=== PATIENT | male | born 1945 | race Two or more races ===

== ENCOUNTER 2019-08-15 23:57 | Emergency (ER) | payer OTHER ==
[~2019-08-15] VITALS: Ht 170.2 cm; Wt 63.5 kg
== END 2019-08-16 04:35 | disposition home or self-care (01) ==
LOC: ER 23:57
DX: S00.03XA Contusion of scalp, initial encounter (principal); F10.129 Alcohol abuse with intoxication, unspecified; W22.8XXA Striking against or struck by other objects, initial encounter; Y93.89 Activity, other specified; Y92.488 Other paved roadways as the place of occurrence of the external cause; Y99.8 Other external cause status

== ENCOUNTER 2019-08-18 12:06 | Emergency (ER) | payer OTHER ==
[~2019-08-18] VITALS: Ht 170.2 cm; Wt 62.6 kg
== END 2019-08-18 13:16 | disposition home or self-care (01) ==
LOC: ER 12:06
DX: S00.03XD Contusion of scalp, subsequent encounter (principal); W18.39XD Other fall on same level, subsequent encounter

== ENCOUNTER 2019-08-31 11:42 | Emergency (ER) | payer OTHER ==
[~2019-08-31] VITALS: Ht 170.2 cm; Wt 62.6 kg
== END 2019-08-31 15:30 | disposition home or self-care (01) ==
LOC: ER 11:42
DX: M54.2 Cervicalgia (principal); R05 Cough

== ENCOUNTER 2020-08-02 11:17 | Emergency (ER) | payer OTHER ==
[~2020-08-02] VITALS: Ht 170.2 cm; Wt 63.5 kg
== END 2020-08-02 14:28 | disposition home or self-care (01) ==
LOC: ER 11:17
DX: M54.2 Cervicalgia (principal); R51.9 Headache, unspecified; Z03.818 Encounter for observation for suspected exposure to other biological agents ruled out

== ENCOUNTER 2020-11-22 12:24 | Emergency (ER) | payer OTHER ==
[~2020-11-22] VITALS: Ht 152.4 cm; Wt 61.2 kg
[2020-11-22] MEDS ORDERED: BUTALB-ASPIRIN1 EACH PO (16:34)
[2020-11-22] MEDS ORDERED: TYLENOL325 MG (16:35)
== END 2020-11-22 17:08 | disposition home or self-care (01) ==
LOC: ER 12:24
DX: G44.201 Tension-type headache, unspecified, intractable (principal)

== ENCOUNTER 2021-02-23 11:35 | Emergency (ER) | payer OTHER ==
[~2021-02-23] VITALS: Ht 170.2 cm; Wt 65.8 kg
[~2021-02-23 11:35] MED LIST: BUTALB-ASPIRIN1 EACH PO; TYLENOL325 MG
[2021-02-23] MEDS ORDERED: FLONASE ALLERG9.9 ML NASAL (16:23)
[2021-02-23] MEDS ORDERED: ZITHROMAX500 MG PO (16:23)
[2021-02-23] MEDS ORDERED: ALLERGY RELIEF10 M3 PO (16:23)
[2021-02-23] MEDS ORDERED: MUCINEX DM ER1 EAC1 PO (16:23)
[2021-02-23] MEDS ORDERED: NIZORAL SHAMPO120 ML TOP (16:41)
[2021-02-23] MEDS ORDERED: CLOTRIMAZOLE-BE15 GM TOP (16:41)
== END 2021-02-23 16:43 ==
LOC: ER 11:35
DX: J06.9 Acute upper respiratory infection, unspecified (principal); B34.9 Viral infection, unspecified; Z03.818 Encounter for observation for suspected exposure to other biological agents ruled out

== ENCOUNTER 2021-04-04 14:00 | Emergency (ER) | payer OTHER ==
[~2021-04-04] VITALS: Ht 170.2 cm; Wt 63.5 kg
[~2021-04-04 14:00] MED LIST changes: +ALLERGY RELIEF10 M3 PO; +CLOTRIMAZOLE-BE15 GM TOP; +FLONASE ALLERG9.9 ML NASAL; +MUCINEX DM ER1 EAC1 PO; +NIZORAL SHAMPO120 ML TOP; +ZITHROMAX500 MG PO
[2021-04-04] MEDS ORDERED: FLUTICASONE PRO16 GM NASAL (15:24)
[2021-04-04] MEDS ORDERED: CLOTRIMAZOLE TOP (15:24)
[2021-04-04] MEDS ORDERED: CLOTRIMAZOLE-BE15 GM TOP (15:24)
[2021-04-04] MEDS ORDERED: HYDROXYZINE HCL25 MG PO (15:24)
== END 2021-04-04 15:35 ==
LOC: ER 14:00
DX: J31.0 Chronic rhinitis (principal); B35.6 Tinea cruris

== ENCOUNTER 2021-06-20 12:02 | Emergency (ER) | payer OTHER ==
[~2021-06-20] VITALS: Ht 170.2 cm; Wt 63.5 kg
[~2021-06-20 12:02] MED LIST changes: +CLOTRIMAZOLE TOP; +FLUTICASONE PRO16 GM NASAL; +HYDROXYZINE HCL25 MG PO
== END 2021-06-20 15:31 | disposition home or self-care (01) ==
LOC: ER 12:02
DX: B34.9 Viral infection, unspecified (principal)

== ENCOUNTER 2021-08-28 23:12 | Emergency (ER) | payer OTHER ==
[~2021-08-28] VITALS: Ht 170.2 cm; Wt 63.5 kg
== END 2021-08-29 | disposition left against medical advice (07) ==
LOC: ER 23:12
DX: S00.81XA Abrasion of other part of head, initial encounter (principal); W18.30XA Fall on same level, unspecified, initial encounter; Y93.9 Activity, unspecified; Y92.9 Unspecified place or not applicable; Y99.9 Unspecified external cause status

== ENCOUNTER 2021-08-29 14:55 | Emergency (ER) | payer OTHER ==
[~2021-08-29] VITALS: Ht 170.2 cm; Wt 62.6 kg
== END 2021-08-29 22:23 | disposition home or self-care (01) ==
LOC: ER 14:55
DX: R51.9 Headache, unspecified (principal); M54.2 Cervicalgia; M25.561 Pain in right knee; W18.30XA Fall on same level, unspecified, initial encounter; Y93.9 Activity, unspecified; Y92.480 Sidewalk as the place of occurrence of the external cause; Y99.9 Unspecified external cause status

== ENCOUNTER 2021-12-19 12:39 | Emergency (ER) | payer OTHER ==
[~2021-12-19] VITALS: Ht 170.2 cm; Wt 60.8 kg
[2021-12-19] MEDS ORDERED: NAPROXEN500 MG PO (16:17)
[2021-12-19] MEDS ORDERED: ANTIVERT25 M2 PO (16:17)
== END 2021-12-19 17:07 | disposition home or self-care (01) ==
LOC: ER 12:39
DX: R51.9 Headache, unspecified (principal); J32.0 Chronic maxillary sinusitis; Z88.0 Allergy status to penicillin

== ENCOUNTER 2022-02-12 12:13 | Emergency (ER) | payer OTHER ==
[~2022-02-12] VITALS: Ht 170.2 cm; Wt 56.7 kg
[~2022-02-12 12:13] MED LIST changes: +ANTIVERT25 M2 PO; +NAPROXEN500 MG PO
[2022-02-12] MEDS ORDERED: DICLOFENAC POTA50 MG PO (16:33)
[2022-02-12] MEDS ORDERED: LEVSIN0.125 MG PO (16:33)
== END 2022-02-12 16:42 | disposition home or self-care (01) ==
LOC: ER 12:13
DX: R10.2 Pelvic and perineal pain (principal); R31.9 Hematuria, unspecified; Z88.0 Allergy status to penicillin

== ENCOUNTER 2022-05-03 11:43 | Emergency (ER) | payer OTHER ==
[~2022-05-03] VITALS: Ht 170.2 cm; Wt 59.0 kg
[~2022-05-03 11:43] MED LIST changes: +DICLOFENAC POTA50 MG PO; +LEVSIN0.125 MG PO
== END 2022-05-03 15:31 | disposition home or self-care (01) ==
LOC: ER 11:43
DX: K40.90 Unilateral inguinal hernia, without obstruction or gangrene, not specified as recurrent (principal); Z88.0 Allergy status to penicillin

== ENCOUNTER 2023-02-27 13:11 | Emergency (ER) | payer OTHER ==
[~2023-02-27] VITALS: Ht 170.2 cm; Wt 58.1 kg
[2023-02-27] MEDS ORDERED: SIMVASTATIN20 MG PO (13:34)
[2023-02-27] MEDS ORDERED: FLUCONAZOLE200 MG PO (13:35)
== END 2023-02-27 14:48 | disposition home or self-care (01) ==
LOC: ER 13:11
DX: M54.89 Other dorsalgia (principal); Z88.0 Allergy status to penicillin
CPT/HCPCS: 96372; 99283; J2360; J1885

== ENCOUNTER 2024-02-26 06:57 | Day surgery (SDC) | payer OTHER ==
[2024-02-24 11:36] VITALS: BP 130/67
[2024-02-24 12:03] LABS: PH,URINE 5.5 (5.0-8.0); URINE APPEARANCE Clear; URINE BILIRRUBIN Negative (NEGATIVE); URINE BLOOD Small; URINE COLOR Yellow; URINE GLUCOSE Negative (NEGATIVE); URINE KETONE Negative (NEGATIVE); URINE LEUKOCYTE Negative; URINE NITRATE Negative; URINE PROTEIN Negative (NEGATIVE); URINE UROBILINOGEN 0.2 E.U./dl
[2024-02-24 12:08] LABS: URINE RBC 6.7 uL (0.0-20.8)
[2024-02-24 12:12] LABS: URINE EPITHELIAL CELLS 0.9 uL (0.0-38.8); URINE WBC 1.2 uL (0.0-23.2)
[2024-02-24 12:37] LABS: HEMATOCRIT 40.4 % (39.0-48.0); HEMOGLOBIN 13.6 g/dL (13-16.00); MEAN CELL VOLUME 86.2 fL (80.0-100.00); MEAN CORPUSCULAR HGB CONC 33.7 g/dl (32.0-36.0); PLATELET COUNT 221 K/uL (150-450); RED BLOOD COUNT 4.69 M/uL (4.00-6.00); RED CELL DISTRIBUTION WIDTH 14.4 % (11.5-14.5)
[2024-02-24 12:41] LABS: INR 0.94; PARTIAL THROMBOPLASTIN TIME 22.3 SECONDS (22.0-34.0); PROTHROMBIN TIME 10.3 SECONDS (9.0-11.5)
[2024-02-24 12:48] LABS: BILIRUBIN TOTAL 0.44 mg/dL (0.3-1.2); CALCIUM 9.4 mg/dL (8.5-10.1); CREATININE SERUM 0.91 mg/dL (0.70-1.30); GLOBULINA 3.2 G/DL (2.4-3.5); POTASSIUM 4.73 mEq/L (3.5-5.1); TOTAL PROTEIN 7.2 gm/dL (6.4-8.2)
[~2024-02-26] VITALS: Ht 172.7 cm; Wt 56.7 kg
[~2024-02-26 06:57] MED LIST changes: +FLUCONAZOLE200 MG PO; +SIMVASTATIN20 MG PO
[2024-02-26] MEDS ORDERED: CIPROFLOXACIN IN 5 % DEXTROSE 400 MG/200 ML PIGGYBAG IV ONE (09:26)
[2024-02-26] MEDS ORDERED: SUGAMMADEX SODIUM 200 MG/2 ML VIAL IV ONE (11:01)
[2024-02-26] MEDS ORDERED: MORPHINE SULFATE 4 MG/ML VIAL IV ONE (12:15)
== END 2024-02-26 14:35 | disposition home or self-care (01) ==
LOC: CIR.AMB 06:57
PROVIDERS: ATTEND Surgery
DX: K40.90 Unilateral inguinal hernia, without obstruction or gangrene, not specified as recurrent (principal); Z88.0 Allergy status to penicillin
CPT/HCPCS: 49650; C1781

== ENCOUNTER 2024-02-28 12:49 | Emergency (ER) | payer OTHER ==
[~2024-02-28] VITALS: Ht 175.3 cm; Wt 56.7 kg
== END 2024-02-28 14:36 | disposition home or self-care (01) ==
LOC: ER 12:51
DX: T14.90XD Injury, unspecified, subsequent encounter (principal); Z88.0 Allergy status to penicillin

== ENCOUNTER 2024-04-09 11:04 | Emergency (ER) | payer OTHER ==
[~2024-04-09] VITALS: Ht 172.7 cm; Wt 59.0 kg
[2024-04-09 11:47] VITALS: BP 140/71; O2SAT 100
[2024-04-09] MEDS ORDERED: KETOROLAC TROMETHAMINE 30 MG VIAL IM STA (12:43)
[2024-04-09] MEDS ORDERED: DEXAMETHASONE SODIUM PHOSPHATE 4 MG/ML VIAL IM STA (12:43)
[2024-04-09] MEDS ORDERED: ACETAMINOPHEN650 M2 PO (14:59)
[2024-04-09] MEDS ORDERED: DICLOFENAC POTA50 MG PO (14:59)
[2024-04-09] MEDS ORDERED: NORFLEX100MG PO (15:02)
== END 2024-04-09 15:41 | disposition home or self-care (01) ==
LOC: ER 11:04
DX: M25.522 Pain in left elbow (principal); M25.552 Pain in left hip; T14.90XA Injury, unspecified, initial encounter; M54.2 Cervicalgia; I10 Essential (primary) hypertension; E11.9 Type 2 diabetes mellitus without complications; Z88.0 Allergy status to penicillin

== ENCOUNTER 2024-09-12 23:53 | Emergency (ER) | payer OTHER ==
[~2024-09-12] VITALS: Ht 170.2 cm; Wt 61.2 kg
[~2024-09-12 23:53] MED LIST changes: +ACETAMINOPHEN650 M2 PO; +NORFLEX100MG PO
[2024-09-13] MEDS ORDERED: KETOROLAC TROMETHAMINE 60 MG VIAL IM ONE ×2 (02:05→02:15)
[2024-09-13] MEDS ORDERED: POVIDONE-IODINE 118 ML BOTT TOP ONE (02:17)
[2024-09-14] MEDS ORDERED: IBUPROFEN600 MG PO (20:08)
== END 2024-09-13 02:20 | disposition home or self-care (01) ==
LOC: ER 23:53
DX: S00.93XA Contusion of unspecified part of head, initial encounter (principal); W18.39XA Other fall on same level, initial encounter; Y93.89 Activity, other specified; Y92.89 Other specified places as the place of occurrence of the external cause; Y99.8 Other external cause status; Z88.0 Allergy status to penicillin

== ENCOUNTER 2024-09-14 10:47 | Emergency (ER) | payer OTHER ==
[~2024-09-14] VITALS: Ht 170.2 cm; Wt 59.4 kg
[~2024-09-14 10:47] MED LIST changes: -IBUPROFEN600 MG PO
[2024-09-14] MEDS ORDERED: KETOROLAC TROMETHAMINE 60 MG VIAL IM ONE (18:15)
[2024-09-14] MEDS ORDERED: DEXAMETHASONE SODIUM PHOSPHATE 4 MG/ML VIAL IM ONE (18:15)
[2024-09-14] MEDS ORDERED: IBUPROFEN600 MG PO (20:08)
== END 2024-09-14 20:54 | disposition home or self-care (01) ==
LOC: ER 10:47
DX: G89.11 Acute pain due to trauma (principal); M25.552 Pain in left hip; I10 Essential (primary) hypertension; Z88.0 Allergy status to penicillin

== ENCOUNTER → 2024-09-14 | Emergency (ER) | payer OTHER ==
[~2024-09-14] VITALS: Ht 170.2 cm; Wt 59.4 kg
[~2024-09-14] MED LIST changes: +IBUPROFEN600 MG PO
== END | disposition left against medical advice (07) ==
LOC: ER 09:23
DX: Z53.21 Procedure and treatment not carried out due to patient leaving prior to being seen by health care provider (principal)

== ENCOUNTER 2024-09-18 09:34 | Emergency (ER) | payer OTHER ==
[~2024-09-18] VITALS: Ht 170.2 cm; Wt 59.0 kg
[~2024-09-18 09:34] MED LIST changes: +IBUPROFEN600 MG PO
[2024-09-18] MEDS ORDERED: KETOROLAC TROMETHAMINE 30 MG VIAL IM STA (10:10)
[2024-09-18] MEDS ORDERED: KETOROLAC TROMETHAMINE 30 MG VIAL ONE (10:15)
== END 2024-09-18 14:41 | disposition home or self-care (01) ==
LOC: ER 09:35
DX: S22.42XA Multiple fractures of ribs, left side, initial encounter for closed fracture (principal); W19.XXXA Unspecified fall, initial encounter; Y93.89 Activity, other specified; Y92.89 Other specified places as the place of occurrence of the external cause; Y99.9 Unspecified external cause status; R07.81 Pleurodynia; Z88.0 Allergy status to penicillin

== ENCOUNTER 2025-03-15 10:43 | Emergency (ER) | payer OTHER ==
[~2025-03-15] VITALS: Ht 170.2 cm; Wt 59.4 kg
[2025-03-15] MEDS ORDERED: KETOROLAC TROMETHAMINE 30 MG VIAL IM ONE (12:45)
[2025-03-15] MEDS ORDERED: KETOROLAC TROMETHAMINE 30 MG VIAL ONE (13:23)
== END 2025-03-15 14:25 | disposition home or self-care (01) ==
LOC: ER 10:44
DX: M25.552 Pain in left hip (principal); Z88.0 Allergy status to penicillin

== ENCOUNTER 2025-05-05 08:00 | Day surgery (SDC) | payer OTHER ==
[2025-04-16 10:41] VITALS: BP 147/70
[2025-04-16 11:35] LABS: URINE APPEARANCE Clear; URINE BILIRRUBIN Negative (NEGATIVE); URINE COLOR Yellow; URINE GLUCOSE Negative (NEGATIVE); URINE KETONE Negative (NEGATIVE); URINE LEUKOCYTE Negative; URINE NITRATE Negative; URINE PROTEIN Negative (NEGATIVE); URINE UROBILINOGEN 0.2 E.U./dl
[2025-04-16 11:40] LABS: URINE RBC 25.8 uL (0.0-20.8)
[2025-04-16 11:45] LABS: BASO % 0.6 % (0.1-1.2); EOS # 0.15 (0.04-0.54); EOS % 1.9 % (0.7-7.0); LYMPH # 1.40 (1.18-3.74); LYMPH % 18.0 % (19.3-53.1); MEAN PLATELET VOLUME 9.50 fl (9.4-12.4); MONO # 0.53 (0.24-0.82); MONO % 6.8 % (4.7-12.5); NEUT # 5.63 (1.56-6.13); NEUT % 72.6 % (34.0-71.1); RED CELL DISTRIBUTION WIDTH 14.3 % (11.6-14.4)
[2025-04-16 11:46] LABS: URINE BACTERIA 1.1 uL (0.0-1933); URINE BLOOD TRACES; URINE CAST 0.00 uL (0.0-1.40); URINE EPITHELIAL CELLS 0.6 uL (0.0-38.8); URINE WBC 0.7 uL (0.0-23.2)
[2025-04-16 12:15] LABS: INR 0.98
[2025-04-16 12:31] LABS: ALT/SGPT 25.0 U/L (12-78); AST/SGOT 24.0 U/L (15-37); BILIRUBIN TOTAL 0.74 mg/dL (0.3-1.2); BUN CREA RATIO 12.0 (7.0-25.0); CREATININE SERUM 0.85 mg/dL (0.70-1.30); GFR 87.4; GLOBULINA 3.0 G/DL (2.4-3.5); GLUCOSE FASTING 89.0 mg/dL (65-100); OSMOLALITY SERUM 282.0 MOSM/KG (275-295)
[~2025-05-05] VITALS: Ht 170.2 cm; Wt 59.4 kg
[2025-05-05] MEDS ORDERED: CEFAZOLIN SODIUM 1,000 MG VIAL ONE (09:49)
[2025-05-05] MEDS ORDERED: SUGAMMADEX SODIUM 200 MG/2 ML VIAL IV ONE ×2 (11:14→12:05)
[2025-05-05] MEDS ORDERED: CIPROFLOXACIN IN 5 % DEXTROSE 400 MG/200 ML PIGGYBAG IV ONE (11:17)
== END 2025-05-05 18:00 | disposition home or self-care (01) ==
LOC: CIR.AMB 08:00
PROVIDERS: ATTEND Surgery
DX: K40.90 Unilateral inguinal hernia, without obstruction or gangrene, not specified as recurrent (principal)
CPT/HCPCS: 49650; C1781